=== PATIENT | female | born 1960 | race Caucasian/White ===

== ENCOUNTER → 2018-08-28 | Outpatient (CLI) | payer BC ==
--- NOTE | 2018-08-28 16:15 | PCVCIMAG ---
APPROVED REPORT Study performed: 08/28/2018 15:09:52 Exam: Stress Echocardiogram Indication: Hypertension, Family history Patient Location: Echo lab Stress Nurse: Noemi Rodney RN Room #: 1 Status: routine Ht: 5 ft 8 in HR: 93 bpm BP: 188/110 mmHg Rhythm: NSR Medical History Medical History: HTN, Hyperlipidemia Cardiac Risk Factors: Hyperlipidemia, HTN, FHX of CAD Previous Cardiac Procedures: none Pretest Chest Pain Characteristics: No chest pain Exercise History: Sedentary Procedure The patient underwent an Exercise Stress Test using the Glenn Protocol. Blood pressure, heart rate, and EKG were monitored. An Echocardiogram was performed by poultry field service technician in four stages in quad fashion. At peak stress, four selected images were obtained and placed side by side with resting images for comparison. Stress Test Details Stress Test: Exercise stress testing was performed using a Glenn protocol. HR Resting HR: 93 bpmMax Heart Rate (APMHR): 165 bpm Max HR Achieved: 181 bpmTarget HR (85% APMHR): 140 bpm % of APMHR: 109 Recovery HR: 99 bpm HR response to stress: Normal HR response to stress BP Resting BP: 188/110 mmHg Max BP: 220/116 mmHg Recovery BP: 198/110 mmHg BP response to stress: Hypertensive- Patient held all meds ECG Resting ECG: Sinus Rhythm Stress ECG: Sinus Rhythm ST Change: Non-ischemic Arrhythmia: rare PVC Recovery ECG: Sinus Rhythm Recovery ST Change: Non-ischemic Recovery Arrhythmia: None Clinical Reason for Termination: Maximal effort Stress Symptoms: fatigue,dyspnea Exercise duration: 5 min 01 sec Highest Stage Achieved: Stage 2: 2.5 mph at 12% grade. Exercise capacity: 7.0 METs Overall Exercise Capacity for Age: Poor Scale: Sedentary Angina Score: None No complications. Stress ECG Conclusion The patient exercised according to the GLENN protocol for 5:01 mins; achieving a work level of 7.0 METS. The resting heart rate of 93 bpm tonio to a maximum heart rate of 181 bpm. This value represent 109% of the maximal, age-predicted heart rate. The resting blood pressure of 188/110mmHg, tonio to a maximum blood pressure of 220/116 mmHg. The exercise test was stopped due todyspnea and fatigue. Pre-Stress Echo The resting Echocardiogram showed normal left ventricular contractility with an estimated Ejection Fraction of about 55-60%. Normal wall motion in all segments on baseline images. Post-Stress Echo The stress Echocardiogram showed normal left ventricular contractility with an estimated Ejection Fraction of about 65-70%. Normal augmentation of wall motion in all segments on post stress images. Conclusion Clinical Response: Non-ischemic Exercise Capacity: Below Average Stress ECG Response: Non-ischemic Stress Echo Images: Non-ischemic No clinical, EKG or echocardiographic evidence for ischemia. <Conclusion> No clinical, EKG or echocardiographic evidence for ischemia.
== END | disposition home or self-care (01) ==
LOC: PCVCIMAG 15:51
PROVIDERS: ATTEND Internal Medicine Cardiovascular Disease
DX: I10 Essential (primary) hypertension (principal)
CPT/HCPCS: 93325; 93351